=== PATIENT | male | born 1960 | race Caucasian/White ===

== ENCOUNTER 2021-04-02 03:25 | Inpatient (IN) | payer BC ==
[~2021-04-02] VITALS: Ht 177.8 cm; Wt 68.2 kg
[2021-04-02] VITALS (16 sets, daily range): BP systolic 117–157; BP diastolic 78–98
[~2021-04-02 03:25] MED LIST: MECL25TA3 PO; ONDA4TAB6 PO
[2021-04-02 03:43] LABS: BASOPHILS # (AUTO) 0.1 X10'3 (0-0.2); BASOPHILS % (AUTO) 1.3 % (0-1); EOSINOPHILS # (AUTO) 0.1 X10'3 (0-0.9); HEMOGLOBIN 15.9 g/dl (14.0-17.9); LYMPHOCYTES # (AUTO) 1.9 X10'3 (1.1-4.8); LYMPHOCYTES % (AUTO) 34.6 % (21-51); MEAN CORPUSCULAR HEMOGLOBIN 30.7 PG (27.0-31.0); MEAN CORPUSCULAR VOLUME 90.5 FL (78-98); MEAN PLATELET VOLUME 8.3 FL (7.4-10.4); MONOCYTES # (AUTO) 0.5 X10'3 (0-0.9); MONOCYTES % (AUTO) 9.2 % (2-12); NEUTROPHILS # (AUTO) 2.9 X10'3 (1.8-7.7); NEUTROPHILS % (AUTO) 52.9 % (42-75); PLATELET COUNT 224 X10'3 (140-440); RED BLOOD COUNT 5.19 X10'6 (4.70-6.10); RED CELL DISTRIBUTION WIDTH 12.7 % (11.5-14.5); WHITE BLOOD COUNT 5.5 X10'3 (4.5-11.0)
[2021-04-02 03:54] LABS: ALANINE AMINOTRANSFERASE 15 U/L (12-78); ALBUMIN 4.2 G/DL (3.4-5.0); ALBUMIN/GLOBULIN RATIO 1.4 (1.1-1.5); ALKALINE PHOSPHATASE 63 IU/L (46-116); ANION GAP 7 (8-16); ASPARTATE AMINO TRANSFERASE 14 U/L (10-37); BILIRUBIN,TOTAL 0.9 MG/DL (0.1-1.0); BLOOD UREA NITROGEN 11 MG/DL (7-18); CALCIUM 8.6 MG/DL (8.5-10.1); CHLORIDE 105 MMOL/L (99-107); GLUCOSE 103 MG/DL (70-104); POTASSIUM 3.3 MMOL/L (3.5-5.1); SODIUM 142 MMOL/L (135-145); TOTAL CARBON DIOXIDE 30.2 MMOL/L (24-32); TOTAL PROTEIN 7.1 G/DL (6.4-8.2); eGFR 77 ML/MIN
[2021-04-02 04:01] LABS: TROPONIN I < 0.04 NG/ML (0.0-0.05)
[2021-04-02] MEDS ORDERED: aspirin 81mg tab.chew PO ONE ×2 (04:05→04:30)
[2021-04-02] MEDS ORDERED: nitroGLYCERIN 1gm ointment UD TP ONE (04:05)
[2021-04-02] MEDS ORDERED: morphine 2 MG/ML inj. syringe IV PRN ×2 (04:20)
[2021-04-02] MEDS ORDERED: bisacodyl 10mg suppository rectal RC PRN (04:20)
[2021-04-02] MEDS ORDERED: potassium Cl 20 mEq SR tablet PO PRN (04:20)
[2021-04-02] MEDS ORDERED: HYDROmorphone inj. 0.5 MG/0.5 ML DISP.SYRIN IV PRN (04:20)
[2021-04-02] MEDS ORDERED: diphenhydrAMINE 25mg capsule PO PRN (04:20)
[2021-04-02] MEDS ORDERED: HYDROcodone/acetaminophen 5mg/325mg tablet PO PRN (04:20)
[2021-04-02] MEDS ORDERED: potassium Cl 40MEQ/1/2NS 520ml 520 ML IV PRN ×2 (04:20)
[2021-04-02] MEDS ORDERED: ondansetron/PF 4mg/2ml inj IV PRN (04:20)
[2021-04-02] MEDS ORDERED: magnesium hydroxide 30ml (MOM) UD suspension PO PRN (04:20)
[2021-04-02] MEDS ORDERED: ondansetron 4mg rapidly disintigrating tab PO PRN (04:20)
[2021-04-02] MEDS ORDERED: mag hydrox/Alum hydrox/simeth 30ml oral suspension PO PRN (04:20)
[2021-04-02] MEDS ORDERED: diphenhydrAMINE 50 mg/ml inj IV PRN (04:20)
[2021-04-02] MEDS ORDERED: acetaminophen 325mg tablet PO PRN ×2 (04:20)
[2021-04-02] MEDS ORDERED: acetaminophen 650mg rectal suppository RC PRN (04:20)
[2021-04-02] MEDS ORDERED: NITR0.4T48 SL (04:21)
[2021-04-02] MEDS ORDERED: DIPH25CA52 PO (04:22)
[2021-04-02] MEDS ORDERED: NITR0.3T10 (04:24)
[2021-04-02] MEDS ORDERED: DIME50TA90 PO (04:24)
[2021-04-02] MEDS: dextrose 5%-1/2 normal saline 1,000 ML IV SCH ×2 (04:36→14:20)
[2021-04-02 04:47] LABS: HEMOGLOBIN A1C 5.2 % (4.5-6.2)
[2021-04-02] MEDS ORDERED: regadenoson 0.4mg/5ml syringe IV ONE (04:50)
[2021-04-02] MEDS ORDERED: metoprolol tartrate 1mg/ml inj IV PRN (04:50)
[2021-04-02] MEDS: K and/or MAG REPLACEMENT MC SCH ×2 (04:50→20:32)
[2021-04-02] MEDS ORDERED: nitroGLYCERIN 0.4mg SUBLingual tab SL PRN (04:50)
[2021-04-02] MEDS ORDERED: aminophylline 250mg/10ml inj. IV PRN (04:50)
[2021-04-02 04:55] LABS: MAGNESIUM 2.1 MG/DL (1.5-2.4); PHOSPHORUS 3.2 MG/DL (2.3-4.5)
[2021-04-02 04:59] LABS: CLARITY,URINE CLEAR (Clear); COLOR,URINE YELLOW (Yellow); GLUCOSE, URINE NEGATIVE (Neg); KETONES,URINE NEGATIVE (Neg); LEUKOCYTE ESTERASE ,URINE NEGATIVE (Neg); NITRITES, URINE NEGATIVE (Neg); OCCULT BLOOD,URINE NEGATIVE (Neg); PH,URINE 6.5 (4.8-8.0); PROTEIN,URINE NEGATIVE (Neg); UROBILINOGEN,URINE 0.2 E.U/dL (0.2-1.0)
[2021-04-02 05:05] LABS: UA COLLECTION TYPE CLN CATCH MIDSTREAM
[2021-04-02 05:10] LABS: D-DIMER 0.45 MG/L FEU (0-0.50); PARTIAL THROMBOPLASTIN TIME 33 SECONDS (22-32)
[2021-04-02] MEDS ORDERED: potassium Cl 20 mEq SR tablet PO STA (06:24)
--- NOTE | 2021-04-02 07:15 | NUR ---
Patient in room ED 1. I have received report from Phil SIEGEL in ER and had the opportunity to ask questions and assume patient care.
--- NOTE | 2021-04-02 07:18 | NUR ---
Patient in room. Orientated to items and equipment. NPO sign hung, fluids running, and monitors are applied. is at bedside, 2RN skin check complete and MRSA. Will continue to monitor.
[2021-04-02] MEDS: heparin, porcine 5000 units/ml vial SQ SCH ×2 (08:00→20:00)
[2021-04-02] MEDS: atorvastatin 20mg tablet PO SCH (08:00)
[2021-04-02] MEDS: nitroGLYCERIN 0.1mg/hour patch TD SCH (08:00)
[2021-04-02] MEDS: lisinopril 2.5mg tablet PO SCH (08:00)
[2021-04-02] MEDS: docusate sod 100mg capsule PO SCH ×2 (08:00→20:00)
--- NOTE | 2021-04-02 10:05 | NUR ---
Patient went down for uma test. SL and in room. We will continue to monitor.
[2021-04-02] MEDS ORDERED: regadenoson 0.4mg/5ml syringe IV PRN (11:00)
--- NOTE | 2021-04-02 12:10 | NUR ---
Atilio called in regards to the uma scan. Pt is having symptoms due to medications given. Pt will receive medications farhat. Neuro checks being done. We will continue to monitor.
--- NOTE | 2021-04-02 12:14 | NUR ---
Paged Dr. Palacio PAGER ID: [phone] MESSAGE: Re: Camilo Lemus. RM 6086. FYI pt coming back from stress test. Tech said he is having episodes of anxiety attacks. Will notify when results are in. Thank you Krys SIEGEL [phone] Addendum: 04/02/21 at 1322 by Krys Rutledge RN responded No New Orders at this time.
--- NOTE | 2021-04-02 13:22 | NUR ---
Paged Dr. Palacio PAGER ID: [phone] MESSAGE: Re:Camilo Lemus, RM 317. Stress test result resulted. Please advise, Krys SIEGEL [phone]
--- NOTE | 2021-04-02 14:13 | NUR ---
Paged Dr. Palacio promotional table spacer PAGER ID: [phone] MESSAGE: Re:Camilo Lemus, RM 317. Stress test result resulted. Please advise, Pt waiting to eat and drink, Krys SIEGEL [phone]
[2021-04-02] MEDS ORDERED: LISI2.5T2 PO (14:45)
[2021-04-02] MEDS ORDERED: ASPI-1071 PO (14:45)
--- NOTE | 2021-04-02 15:16 | NUR ---
Paged Dr. Palacio to inform her of Dr Finney promotional table spacer PAGER ID: [phone] MESSAGE: Re: Camilo Lemus RM 1153. Reg would like to keep pt for another night and watch the heart before pt goes home. Thank you Krys RN [phone] responded and has cancelled discharge/
[2021-04-02] MEDS: aspirin 81mg tablet.DR PO SCH (16:16)
--- NOTE | 2021-04-02 18:00 | NUR ---
Patient in room MED 307. I have received report from Karthik and had the opportunity to ask questions and assume patient care.
--- NOTE | 2021-04-02 18:00 | NUR ---
Patient in room MED 317. I have received report from Fannie and had the opportunity to ask questions and assume patient care.
--- NOTE | 2021-04-02 18:31 | NUR ---
Problems reprioritized. Patient report given, questions answered & plan of care reviewed with Joyce SIEGEL.
[2021-04-02] MEDS: potassium Cl 20 mEq SR tablet PO PRN (20:30)
--- NOTE | 2021-04-02 20:30 | NUR ---
Pt refused 12 hour Troponin, stating that Dr Finney told him hewouldnt need while was talking to him previously, his was also adament he not recieve the 4th troponin stating that he had been poked to many times already and it wasn't needed. I provided info on the importance of troponins and blood draws, pt stsated he would do the AM blood draw. Addendum: 04/03/21 at 0427 by Joyce Santoyo RN called dr Jhon, and explained situation noting that the prior trops were negative. Dr John gave me permission to cancel the 4th trop.
[2021-04-02] MEDS ORDERED: temazepam 15mg capsule PO PRN (21:00)
[2021-04-03 02:00] VITALS: BP 145/79
[2021-04-03] MEDS: dextrose 5%-1/2 normal saline 1,000 ML IV SCH (04:07)
[2021-04-03] MEDS: potassium Cl 20 mEq SR tablet PO PRN ×2 (04:07→08:54)
[2021-04-03 06:00] VITALS: BP 145/79
--- NOTE | 2021-04-03 06:23 | NUR ---
Patient in room MED 317. I have received report from CHRISTAL Cook and had the opportunity to ask questions and assume patient care.
--- NOTE | 2021-04-03 06:28 | NUR ---
Problems reprioritized. Patient report given, questions answered & plan of care reviewed with Johnson.
--- NOTE | 2021-04-03 06:37 | NUR ---
Patient in room MED 317. I have received report from CHRISTAL GARCIA, and had the opportunity to ask questions and assume patient care.
[2021-04-03 06:38] LABS: BASOPHILS # (AUTO) 0.1 X10'3 (0-0.2); BASOPHILS % (AUTO) 0.9 % (0-1); EOSINOPHILS # (AUTO) 0.1 X10'3 (0-0.9); EOSINOPHILS % (AUTO) 0.9 % (0-6); HEMATOCRIT 47.7 % (42.0-52.0); HEMOGLOBIN 16.5 g/dl (14.0-17.9); LYMPHOCYTES % (AUTO) 16.4 % (21-51); MEAN CORPUSCULAR HEMOGLOBIN 31.3 PG (27.0-31.0); MEAN CORPUSCULAR HGB CONC 34.6 g/dL (33.0-36.5); MEAN CORPUSCULAR VOLUME 90.3 FL (78-98); MEAN PLATELET VOLUME 8.9 FL (7.4-10.4); MONOCYTES # (AUTO) 0.4 X10'3 (0-0.9); MONOCYTES % (AUTO) 6.7 % (2-12); NEUTROPHILS # (AUTO) 4.4 X10'3 (1.8-7.7); NEUTROPHILS % (AUTO) 75.1 % (42-75); PLATELET COUNT 237 X10'3 (140-440); RED BLOOD COUNT 5.28 X10'6 (4.70-6.10); RED CELL DISTRIBUTION WIDTH 13.1 % (11.5-14.5); WHITE BLOOD COUNT 5.8 X10'3 (4.5-11.0)
[2021-04-03 06:48] LABS: ALANINE AMINOTRANSFERASE 22 U/L (12-78); ALBUMIN 4.1 G/DL (3.4-5.0); ALBUMIN/GLOBULIN RATIO 1.2 (1.1-1.5); ALKALINE PHOSPHATASE 62 IU/L (46-116); ANION GAP 6 (8-16); ASPARTATE AMINO TRANSFERASE 13 U/L (10-37); BILIRUBIN,TOTAL 0.8 MG/DL (0.1-1.0); BLOOD UREA NITROGEN 8 MG/DL (7-18); BUN/CREATININE RATIO 8.2 (5.4-32.0); CALCIUM 8.5 MG/DL (8.5-10.1); CHLORIDE 105 MMOL/L (99-107); CHOLESTEROL 155 MG/DL (0-200); CREATININE 0.98 MG/DL (0.60-1.10); GLUCOSE 117 MG/DL (70-104); HDL CHOLESTEROL 51 MG/DL (35-60); LDL CHOLESTEROL 88 MG/DL (50-100); POTASSIUM 3.5 MMOL/L (3.5-5.1); SODIUM 140 MMOL/L (135-145); TOTAL CARBON DIOXIDE 29.2 MMOL/L (24-32); TOTAL PROTEIN 7.4 G/DL (6.4-8.2); TRIGLYCERIDES 70 MG/DL (20-135); eGFR 79 ML/MIN
[2021-04-03] MEDS: docusate sod 100mg capsule PO SCH (08:00)
[2021-04-03] MEDS: nitroGLYCERIN 0.1mg/hour patch TD SCH (08:00)
[2021-04-03] MEDS: heparin, porcine 5000 units/ml vial SQ SCH (08:00)
[2021-04-03] MEDS: atorvastatin 20mg tablet PO SCH (08:00)
[2021-04-03] MEDS: lisinopril 2.5mg tablet PO SCH (08:00)
[2021-04-03] MEDS: aspirin 81mg tablet.DR PO SCH (08:41)
[2021-04-03] MEDS: K and/or MAG REPLACEMENT MC SCH (08:57)
--- NOTE | 2021-04-03 10:00 | NUR ---
Pt refused MRSA swab in nares.
[2021-04-03 11:00] VITALS: BP 143/89
--- NOTE | 2021-04-03 11:12 | NUR ---
PIV REMOVED WITH TIP INTACT. PROCEDURE TOLERATED WELL BY PT. MEDICATION AND FOLLOW UP CARE DISCUSSED WITH PT AND HIS , THEY VERBALIZED UNDERSTANDING. DISCHARGE PACKET REVIEWED WITH PT AND . PT DISCHARGED TO HOME. PT ESCORTED TO PRIVATE CARE BY NURSING STAFF.
--- NOTE | 2021-04-03 12:00 | NUR ---
Orientee documentation: I have reviewed and agree with all interventions, assessments performed and documented by CHRISTAL Beth.
== END 2021-04-03 11:12 | disposition home or self-care (01) | DRG 641 ==
LOC: ER 03:25 → ED HOLD 04:19 → MED 3N 08:27
PROVIDERS: ADMIT Family Medicine; ATTEND Family Medicine
DX: E87.6 Hypokalemia (principal); R00.2 Palpitations; E86.0 Dehydration; H91.93 Unspecified hearing loss, bilateral; I10 Essential (primary) hypertension; I49.5 Sick sinus syndrome; Z88.2 Allergy status to sulfonamides
CPT/HCPCS: 36415; 71045; 78452; 80053; 80061; 81003; 83036; 83735; 83880; 84100; 84443; 84484; 85025; 85379; 85610; 85730; 87081; 93005; 93017; 99285; A9500; G0378; J0280; Q0163

== ENCOUNTER 2021-04-07 15:04 | Outpatient (CLI) | payer BC ==
[~2021-04-07 15:04] MED LIST changes: +ASPI-1071 PO; +LISI2.5T2 PO; -MECL25TA3 PO; +NITR0.3T10; -ONDA4TAB6 PO
== END 2021-04-07 23:59 | disposition home or self-care (01) ==
LOC: CARD DIAG 15:04
PROVIDERS: ATTEND Internal Medicine Cardiovascular Disease
DX: I48.91 Unspecified atrial fibrillation (principal)
CPT/HCPCS: 93306

== ENCOUNTER 2022-08-09 06:40 | Emergency (ER) | payer BC ==
[~2022-08-09] VITALS: Ht 177.8 cm; Wt 72.7 kg
[2022-08-09] MEDS ORDERED: mag hydrox/Alum hydrox/simeth 30ml oral suspension PO ONE (07:35)
[2022-08-09] MEDS ORDERED: famotidine 20mg tablet PO ONE (07:35)
[2022-08-09] MEDS ORDERED: LIDOcaine Viscous 15ml cup MM ONE (07:35)
--- NOTE | 2022-08-09 07:56 | NUR ---
PATIENT APPEARS TO BE ANXIOUS ABOUT TREATMENT PLAN. PATIENT WAS GIVEN GI COCKTAIL (MAALOX AND VISCOUS LIDOCAINE) AND STARTED TO HAVE INCREASED ANXIETY AFTER TAKING 2 SIPS OF THE LIQUID, STATING THAT HE WAS UNABLE TO SWALLOW. O2 SAT 100% AND RESP UNLABORED. DR. DE LA VEGA NOTIFIED AND REASSURED PATIENT.
[2022-08-09 07:57] LABS: BASOPHILS # (AUTO) 0.1 X10'3 (0-0.2); EOSINOPHILS % (AUTO) 0.6 % (0-6); HEMATOCRIT 46.5 % (42.0-52.0); HEMOGLOBIN 16.4 g/dl (14.0-17.9); LYMPHOCYTES # (AUTO) 0.8 X10'3 (1.1-4.8); LYMPHOCYTES % (AUTO) 16.6 % (21-51); MEAN CORPUSCULAR HEMOGLOBIN 31.3 PG (27.0-31.0); MEAN CORPUSCULAR HGB CONC 35.3 g/dL (33.0-36.5); MEAN CORPUSCULAR VOLUME 88.7 FL (78-98); MEAN PLATELET VOLUME 8.2 FL (7.4-10.4); MONOCYTES # (AUTO) 0.4 X10'3 (0-0.9); NEUTROPHILS # (AUTO) 3.6 X10'3 (1.8-7.7); NEUTROPHILS % (AUTO) 72.8 % (42-75); PLATELET COUNT 224 X10'3 (140-440); RED BLOOD COUNT 5.25 X10'6 (4.70-6.10); RED CELL DISTRIBUTION WIDTH 12.9 % (11.5-14.5); WHITE BLOOD COUNT 4.9 X10'3 (4.5-11.0)
[2022-08-09 08:08] LABS: ALANINE AMINOTRANSFERASE 23 U/L (12-78); ALBUMIN/GLOBULIN RATIO 1.3 (1.1-1.5); ALKALINE PHOSPHATASE 66 IU/L (46-116); ANION GAP 4 (8-16); ASPARTATE AMINO TRANSFERASE 17 U/L (10-37); BILIRUBIN,TOTAL 0.9 MG/DL (0.1-1.0); BLOOD UREA NITROGEN 9 MG/DL (7-18); BUN/CREATININE RATIO 8.5 (5.4-32.0); CALCIUM 9.1 MG/DL (8.5-10.1); CHLORIDE 104 MMOL/L (99-107); CREATININE 1.06 MG/DL (0.60-1.10); GLUCOSE 106 MG/DL (70-104); POTASSIUM 3.5 MMOL/L (3.5-5.1); SODIUM 139 MMOL/L (135-145); TOTAL CARBON DIOXIDE 30.8 MMOL/L (24-32); TOTAL PROTEIN 7.1 G/DL (6.4-8.2); eGFR 72 ML/MIN
[2022-08-09] MEDS ORDERED: FAMO20TA47 PO (09:50)
[2022-08-09] MEDS ORDERED: POLY119P2 PO (09:50)
[2022-08-09 10:10] VITALS: BP 136/91
== END 2022-08-09 10:13 | disposition home or self-care (01) ==
LOC: ER 06:40
DX: K59.00 Constipation, unspecified (principal); R07.89 Other chest pain; Z88.2 Allergy status to sulfonamides
CPT/HCPCS: 36415; 71045; 80053; 83880; 84484; 85025; 93005; 99285